=== PATIENT | male | born 1980 | race Caucasian/White ===

== ENCOUNTER 2017-08-08 17:06 | Emergency (ER) | payer OTHER ==
[~2017-08-08] VITALS: Ht 150 cm; Wt 95.9 kg
[2017-08-08 17:09] VITALS: BP 126/76; PULSE 85; TEMP 99.8
[2017-08-08] MEDS ORDERED: FLEXERIL 1010 MG/TAB PO (17:32)
== END 2017-08-08 17:40 | disposition home or self-care (01) ==
LOC: COL.ER 17:06
DX: M25.511 Pain in right shoulder (principal); M25.512 Pain in left shoulder; X50.0XXA Overexertion from strenuous movement or load, initial encounter; Y93.68 Activity, volleyball (beach) (court)

== ENCOUNTER 2017-12-20 05:14 | Emergency (ER) | payer OTHER ==
[~2017-12-20] VITALS: Ht 189 cm; Wt 99.0 kg
[~2017-12-20 05:14] MED LIST: FLEXERIL 1010 MG/TAB PO
[2017-12-20 05:18] VITALS: BP 142/98; TEMP 98.6
[2017-12-20] MEDS ORDERED: VOLTAREN 75 DR75 MG PO (06:24)
[2017-12-20] MEDS ORDERED: FLEXERIL 1010 MG/TAB PO (06:24)
[2017-12-20 06:39] VITALS: PULSE 82
== END 2017-12-20 06:40 | disposition home or self-care (01) ==
LOC: COL.ER 05:14
DX: M54.6 Pain in thoracic spine (principal); F17.290 Nicotine dependence, other tobacco product, uncomplicated
CPT/HCPCS: J1885

== ENCOUNTER 2017-12-28 19:24 | Emergency (ER) | payer OTHER ==
[~2017-12-28] VITALS: Ht 159 cm; Wt 95.5 kg
[~2017-12-28 19:24] MED LIST changes: +VOLTAREN 75 DR75 MG PO
[2017-12-28 19:30] VITALS: BP 132/84; TEMP 98.3
[2017-12-28 20:25] LABS: BASO % 0.4 % (0.0-2.0); EOS # 0.2 (0.0-0.7); GRAN # 4.1 (1.4-6.5); GRAN % 56.1 % (42.2-75.2); HEMATOCRIT 49.6 % (42.0-52.0); HEMOGLOBIN 16.9 g/dl (13.5-18.0); LYMPH # 2.5 (1.2-3.4); LYMPH % 34.7 % (20.0-51.0); MEAN CELL VOLUME 87 fl (80.0-100.0); MEAN CORPUSCULAR HEMOGLOBIN 30 pg (27.0-31.0); MEAN CORPUSCULAR HGB CONC 34 g/dl (33.0-37.0); MEAN PLATELET VOLUME 9.6 fl (7.4-10.4); MONO # 0.5 (0.1-0.6); MONO % 6.7 % (1.7-9.3); PLATELET COUNT 302 K/mm3 (130-400); RED BLOOD COUNT 5.69 M/mm3 (4.20-5.60)
[2017-12-28 20:39] LABS: ALBUMIN 4.2 gm/dL (3.5-5.0); BILIRUBIN,TOTAL 0.6 mg/dL (0.0-1.0); CALCIUM 8.9 mg/dL (8.4-10.2); CREATININE, serum 1.11 mg/dL (0.66-1.25); POTASSIUM 4.2 mmol/L (3.4-5.0); TOTAL PROTEIN 7.8 gm/dL (6.4-8.2)
[2017-12-28 21:50] VITALS: PULSE 76
== END 2017-12-28 21:50 | disposition home or self-care (01) ==
LOC: COL.ER 19:24
PROVIDERS: Emergency Medicine
DX: B34.9 Viral infection, unspecified (principal); F17.210 Nicotine dependence, cigarettes, uncomplicated
CPT/HCPCS: J1885; J7030

== ENCOUNTER 2018-02-20 06:15 | Emergency (ER) | payer OTHER ==
[~2018-02-20] VITALS: Ht 189 cm; Wt 97.7 kg
[2018-02-20 06:18] VITALS: BP 136/81; PULSE 96; TEMP 97.5
[2018-02-20] MEDS ORDERED: TESSALON P100 MG/CAP PO ×2 (06:41→07:01)
== END 2018-02-20 07:16 | disposition home or self-care (01) ==
LOC: COL.ER 06:15
DX: J06.9 Acute upper respiratory infection, unspecified (principal); F17.290 Nicotine dependence, other tobacco product, uncomplicated